=== PATIENT | female | born 1975 | race Caucasian/White ===

== ENCOUNTER 2017-09-04 12:42 | Inpatient (IN) | payer OTHER ==
[~2017-09-04] VITALS: Ht 157.4 cm; Wt 63.5 kg
[~2017-09-04 12:42] MED LIST: AMOXICILLIN500 M2 PO; AMOXICILLIN500 MG PO; CLARITIN10 MG PO; CLEOCIN150 MG PO; DIFLUCAN150 MG PO; DOXYCYCLINE HY100 M5 PO; HYDROCODONE BIT1 T11 PO; LEVOFLOXACIN500 MG PO; MOTRIN600 MG PO; Motrin,Rufen800 MG PO; NICODERM21 MG/24 H TD; NKHM; PREDNISONE10 MG PO; VIBRAMYCIN100 MG PO; VICODIN 500 MG-1 TAB PO
[2017-09-04 12:55] VITALS: BP 180/167
[2017-09-04 13:59] LABS: BASO % 0.3 % (0.0-1.0); EOS # 0.1 10*3/uL (0.0-0.4); EOS % 0.4 % (1.0-4.0); HEMATOCRIT 41.6 % (37.0-47.0); HEMOGLOBIN 14.2 g/dl (12.0-16.0); LYMPH # 2.8 10*3/uL (1.3-4.4); LYMPH % 18.9 % (27.0-41.0); MEAN CELL VOLUME 89.1 fl (81.0-99.0); MEAN CORPUSCULAR HGB 30.4 pg (27.0-31.0); MEAN CORPUSCULAR HGB CONC 34.1 g/dl (33.0-37.0); MEAN PLATELET VOLUME 8.9 fl (9.6-12.3); MONO # 0.8 10*3/uL (0.1-1.0); MONO % 5.2 % (3.0-9.0); NEUT # 10.9 10*3/uL (2.3-7.9); NEUT % 74.9 % (47.0-73.0); PLATELET COUNT AUTOMATED 402 10*3/uL (130-400); RED BLOOD COUNT 4.67 10*6/uL (4.10-5.10); WHITE BLOOD COUNT 14.5 10*3/uL (4.8-10.8)
[2017-09-04 14:18] LABS: BUN 13 mg/dl (7-24); CHLORIDE 104 mmol/L (98-107); CREATININE 0.83 mg/dL (0.55-1.02); POTASSIUM 4.1 mmol/L (3.5-5.1); SODIUM 138 mmol/L (136-145)
[2017-09-04 17:30] VITALS: BP 134/80
[2017-09-04 17:36] VITALS: BP 134/80
[2017-09-04] MEDS ORDERED: NEURONTIN800 MG PO (18:05)
[2017-09-04 20:00] VITALS: BP 122/72
[2017-09-05] VITALS: BP 154/80
[2017-09-05 06:25] LABS: BASO % 0.5 % (0.0-1.0); EOS # 0.1 10*3/uL (0.0-0.4); EOS % 0.7 % (1.0-4.0); HEMOGLOBIN 12.3 g/dl (12.0-16.0); LYMPH % 35.4 % (27.0-41.0); MEAN CELL VOLUME 88.7 fl (81.0-99.0); MEAN CORPUSCULAR HGB 30.3 pg (27.0-31.0); MEAN CORPUSCULAR HGB CONC 34.2 g/dl (33.0-37.0); MEAN PLATELET VOLUME 9.2 fl (9.6-12.3); MONO # 0.6 10*3/uL (0.1-1.0); MONO % 6.9 % (3.0-9.0); NEUT # 4.8 10*3/uL (2.3-7.9); NEUT % 56.2 % (47.0-73.0); PLATELET COUNT AUTOMATED 346 10*3/uL (130-400); RED BLOOD COUNT 4.06 10*6/uL (4.10-5.10); RED CELL DISTRI WIDTH 14.1 % (0-14.5); WHITE BLOOD COUNT 8.6 10*3/uL (4.8-10.8)
[2017-09-05 06:34] LABS: ALBUMIN 2.8 gm/dl (3.1-4.5); ALKALINE PHOSPHATASE 67 U/L (45-117); BUN 7 mg/dl (7-24); CHLORIDE 106 mmol/L (98-107); CHOLESTEROL 109 mg/dL (<200); CREATININE 0.62 mg/dL (0.55-1.02); HDL CHOLESTEROL 42 mg/dl (40-60); LDL CHOLESTEROL 51 mg/dL (9-159); POTASSIUM 3.6 mmol/L (3.5-5.1); SGOT/AST 10 IU/L (3-35); SGPT/ALT 12 U/L (12-78); SODIUM 139 mmol/L (136-145); TOTAL PROTEIN 6.1 gm/dL (6.4-8.2); TRIGLYCERIDES 79 mg/dl (<150); VLDL CHOLESTEROL 16 mg/dL (6-40)
[2017-09-05 06:39] LABS: THYROID STIM HORMONE (HS) 0.645 uIU/ml (0.358-4.75)
[2017-09-05 06:45] LABS: ACT PARTIAL THROMBO TIME 27.6 SECONDS (20.8-31.5)
[2017-09-05 07:04] LABS: VITAMIN D, 25-HYDROXY 13.6 ng/mL (30-100)
[2017-09-05 08:00] VITALS: BP 127/68
[2017-09-05 12:00] VITALS: BP 123/57
[2017-09-05 16:00] VITALS: BP 107/47
[2017-09-05 20:00] VITALS: BP 155/79
[2017-09-06] VITALS: BP 121/68
[2017-09-06 06:34] LABS: BASO % 0.6 % (0.0-1.0); EOS % 0.3 % (1.0-4.0); HEMATOCRIT 37.4 % (37.0-47.0); HEMOGLOBIN 12.8 g/dl (12.0-16.0); LYMPH % 29.9 % (27.0-41.0); MEAN CELL VOLUME 89.5 fl (81.0-99.0); MEAN CORPUSCULAR HGB 30.6 pg (27.0-31.0); MEAN CORPUSCULAR HGB CONC 34.2 g/dl (33.0-37.0); MEAN PLATELET VOLUME 9.3 fl (9.6-12.3); MONO # 0.5 10*3/uL (0.1-1.0); NEUT # 4.2 10*3/uL (2.3-7.9); NEUT % 62.1 % (47.0-73.0); PLATELET COUNT AUTOMATED 352 10*3/uL (130-400); RED BLOOD COUNT 4.18 10*6/uL (4.10-5.10); WHITE BLOOD COUNT 6.7 10*3/uL (4.8-10.8)
[2017-09-06 06:53] LABS: BUN 7 mg/dl (7-24); CHLORIDE 106 mmol/L (98-107); POTASSIUM 3.4 mmol/L (3.5-5.1); SODIUM 140 mmol/L (136-145)
[2017-09-06 08:00] VITALS: BP 111/58
[2017-09-06 12:00] VITALS: BP 130/81
[2017-09-06] MEDS ORDERED: AUGMENTIN XR 11 EACH PO (13:24)
== END 2017-09-06 14:33 | disposition home or self-care (01) | DRG 603 ==
LOC: ED 12:42 → 5E 16:37 → EDHOLD 16:37 → 5E 16:49
PROVIDERS: Emergency Medicine; Internal Medicine Hospice and Palliative Medicine; ADMIT Internal Medicine
DX: L03.211 Cellulitis of face (principal); E44.0 Moderate protein-calorie malnutrition; I16.1 Hypertensive emergency; K04.7 Periapical abscess without sinus; D47.3 Essential (hemorrhagic) thrombocythemia; F17.210 Nicotine dependence, cigarettes, uncomplicated; Z71.6 Tobacco abuse counseling; F32.9 Major depressive disorder, single episode, unspecified; E55.9 Vitamin D deficiency, unspecified; G89.4 Chronic pain syndrome; Q07.00 Arnold-Chiari syndrome without spina bifida or hydrocephalus; Z98.51 Tubal ligation status; Z68.25 Body mass index [BMI] 25.0-25.9, adult; Z79.899 Other long term (current) drug therapy

== ENCOUNTER → 2018-04-13 | Outpatient (CLI) | payer OTHER ==
[~2018-04-13] MED LIST changes: +AUGMENTIN XR 11 EACH PO; +NEURONTIN800 MG PO
== END | disposition home or self-care (01) ==
LOC: CARD 11:07
DX: R00.2 Palpitations (principal); R03.0 Elevated blood-pressure reading, without diagnosis of hypertension

== ENCOUNTER 2020-01-07 06:58 | Emergency (ER) | payer OTHER ==
[~2020-01-07] VITALS: Ht 157.4 cm; Wt 58.1 kg
[2020-01-07 07:51] LABS: BASO # 0.1 10*3/uL (0.0-0.1); BASO % 1.1 % (0.0-1.0); EOS % 0.6 % (1.0-4.0); HEMATOCRIT 39.8 % (37.0-47.0); HEMOGLOBIN 13.1 g/dl (12.0-16.0); LYMPH % 36.7 % (27.0-41.0); MEAN CELL VOLUME 94.1 fl (81.0-99.0); MEAN CORPUSCULAR HGB CONC 32.9 g/dl (33.0-37.0); MONO # 0.4 10*3/uL (0.1-1.0); NEUT # 2.9 10*3/uL (2.3-7.9); NEUT % 54.4 % (47.0-73.0); PLATELET COUNT AUTOMATED 290 10*3/uL (130-400); RED BLOOD COUNT 4.23 10*6/uL (4.10-5.10); RED CELL DISTRI WIDTH 14.1 % (0-14.5); WHITE BLOOD COUNT 5.4 10*3/uL (4.8-10.8)
[2020-01-07 08:11] LABS: ALKALINE PHOSPHATASE 69 U/L (45-117); BUN 16 mg/dl (7-24); CHLORIDE 112 mmol/L (98-107); CREATININE 1.01 mg/dL (0.55-1.02); POTASSIUM 4.2 mmol/L (3.5-5.1); SGOT/AST 19 IU/L (3-35); SGPT/ALT 23 U/L (12-78); SODIUM 142 mmol/L (136-145); TOTAL PROTEIN 7.2 gm/dL (6.4-8.2)
[2020-01-07 08:15] LABS: TROPONIN I < 0.015 ng/ml (<0.045)
[2020-01-07 09:00] VITALS: BP 123/69
== END 2020-01-07 09:03 | disposition home or self-care (01) ==
LOC: ED 06:58
PROVIDERS: Emergency Medicine
DX: R00.2 Palpitations (principal); R07.9 Chest pain, unspecified; R42 Dizziness and giddiness; R61 Generalized hyperhidrosis; F17.210 Nicotine dependence, cigarettes, uncomplicated

== ENCOUNTER 2023-08-25 05:02 | Emergency (ER) | payer SELFPAY ==
[~2023-08-25] VITALS: Ht 165.1 cm; Wt 59.0 kg
[2023-08-25 06:07] LABS: BASO # 0.1 10*3/uL (0.0-0.1); BASO % 0.4 % (0.0-1.0); HEMATOCRIT 40.1 % (37.0-47.0); LYMPH # 1.1 10*3/uL (1.3-4.4); LYMPH % 7.8 % (27.0-41.0); MEAN CELL VOLUME 89.9 fl (81.0-99.0); MEAN CORPUSCULAR HGB 31.2 pg (27.0-31.0); MEAN CORPUSCULAR HGB CONC 34.7 g/dl (33.0-37.0); MEAN PLATELET VOLUME 9.1 fl (9.6-12.3); MONO # 0.6 10*3/uL (0.1-1.0); MONO % 4.5 % (3.0-9.0); NEUT # 12.3 10*3/uL (2.3-7.9); NEUT % 86.6 % (47.0-73.0); PLATELET COUNT AUTOMATED 272 10*3/uL (130-400); RED BLOOD COUNT 4.46 10*6/uL (4.10-5.10); RED CELL DISTRI WIDTH 13.6 % (0-14.5); WHITE BLOOD COUNT 14.1 10*3/uL (4.8-10.8)
[2023-08-25 06:16] LABS: URINE AMPHETAMINES Negative (1000ng/ml); URINE BARBITURATES Negative (200ng/ml); URINE BENZODIAZEPINES Negative (200ng/ml); URINE CANNABINOIDS (THC) Positive (50ng/ml); URINE COCAINE Positive (300ng/ml); URINE METHADONE Negative (300ng/ml); URINE OPIATES Negative (300ng/ml); URINE PHENCYCLIDINE Negative (25ng/ml)
[2023-08-25 06:36] LABS: BILIRUBIN Negative (Negative); BLOOD Negative (Negative); CLARITY Clear (Clear); COLOR Yellow (Yellow); GLUCOSE Negative (Negative); KETONE Trace (Negative); LEUKO ESTERASE Negative (Negative); NITRITE Negative (Negative); PH 5.5 (4.5-8.0); SPECIFIC GRAVITY 1.025 (1.001-1.030)
[2023-08-25 06:56] LABS: WBC 0-2 wbc/hpf (0-5)
[2023-08-25 06:57] LABS: BACTERIA 2+
[2023-08-25] MEDS ORDERED: AMOX-CLAV 875-1 EACH PO (07:07)
[2023-08-25 07:16] LABS: ETHYL ALCOHOL < 3.0 mg/dl (<3)
[2023-08-25 07:17] LABS: B-hCG (QUALITATIVE) BORDERLINE (NEGATIVE)
== END 2023-08-25 10:56 | disposition home or self-care (01) ==
LOC: ED 05:02
PROVIDERS: Family Medicine
DX: R56.9 Unspecified convulsions (principal); Z98.51 Tubal ligation status; Z98.890 Other specified postprocedural states; F17.210 Nicotine dependence, cigarettes, uncomplicated; F14.10 Cocaine abuse, uncomplicated; Z79.899 Other long term (current) drug therapy